=== PATIENT | male | born 1950 | race Caucasian/White ===

== ENCOUNTER 2017-07-07 06:09 | Observation (INO) | payer OTHER ==
[2017-07-07] VITALS (7 sets, daily range): BP systolic 121–156; BP diastolic 74–95; PULSE 60–70; RESP 18–20; TEMP 97.6–97.9; O2SAT 94–100
[~2017-07-07] VITALS: Ht 180.3 cm; Wt 81.0 kg
[~2017-07-07 06:09] MED LIST: CARV6.252 PO; FINA5TAB2 PO; LANS15CA PO
[2017-07-07] MEDS ORDERED: POVIDONE IODINE 5% (ANTISEPSIS KIT) 4 APPLICATIONS EACH NARE PRN (07:00)
[2017-07-07] MEDS ORDERED: INSULIN HUMAN REGULAR 1,000 UNITS/10 ML VIAL SQ PRN (07:00)
[2017-07-07] MEDS ORDERED: METOPROLOL TARTRATE 25 MG TAB PO PRN (07:00)
[2017-07-07] MEDS ORDERED: LACTATED RINGER'S 1000 ML IV PRN (07:00)
[2017-07-07] MEDS ORDERED: SODIUM CHLORID 0.9% 500 ML IV PRN (07:00)
[2017-07-07] MEDS ORDERED: AMPICILLIN/SULBAC 3 GM/NS 100 ML IV SCH ×2 (07:00)
[2017-07-07] MEDS ORDERED: CHLORHEXIDINE GLUCONATE 2 % 1 PACK (2 CLOTHS) TOPICAL PRN (07:00)
[2017-07-07] MEDS ORDERED: OCUVTAB4 PO (07:01)
[2017-07-07] MEDS ORDERED: LIDOCAINE 1%/EPINEPHrine 1:100,000 SOLN 20 ML VIAL ONE (07:09)
[2017-07-07] MEDS ORDERED: MICROFIBRILLAR COLLAGEN HEMOSTAT 1 GM PKT ONE (07:09)
--- NOTE | 2017-07-07 07:27 | EKG ---
Date Performed: 07/07/2017 Time Performed: 07:16:37 PTAGE: 66 years EKG: ELECTRONIC ATRIAL PACEMAKER ABNORMAL RHYTHM ECG NO PREVIOUS TRACING DOCTOR: Gera Staples Interpretating Date/Time 07/07/2017 07:27:25
[2017-07-07] MEDS ORDERED: OXYMETAZOLINE HCL 0.05% 15 ML NASAL SPRAY ONE ×3 (08:54→09:22)
[2017-07-07] MEDS ORDERED: *MEPERIDINE 25 MG INJ VIAL PERIprocedural Use ONLY ONE (10:19)
[2017-07-07] MEDS ORDERED: *Lactated Ringer's INJ 1,000 ML ONE (10:22)
[2017-07-07] MEDS ORDERED: PROPOFOL 200 MG/20 ML AMP IV ONE (12:00)
[2017-07-07] MEDS ORDERED: ONDANSETRON HCL 4 MG/2 ML VIAL IV PUSH ONE (12:00)
[2017-07-07] MEDS: LACTATED RINGER'S 1000 ML INJ 1,000 ML IV SCH ×2 (13:00→23:08)
[2017-07-07] MEDS: ACETAMINOPHEN 325MG/HYDROcodone 7.5MG/15ML UDC PO PRN ×3 (15:24→23:08)
[2017-07-08] VITALS: BP 112/67; PULSE 64; RESP 20; TEMP 97; O2SAT 97
--- NOTE | 2017-08-06 15:27 | MP ---
cc: ERICKA TOWNSEND M.D. DATE OF SURGERY: July 08, [address] Ericka Townsend. PREOPERATIVE DIAGNOSIS 1. Nasal airway obstruction. 2. Hypertrophy of inferior turbinates. 3. Adenotonsillar hypertrophy. 4. Chronic tonsillitis. POSTOPERATIVE DIAGNOSIS 1. Nasal airway obstruction. 2. Hypertrophy of inferior turbinates. 3. Adenotonsillar hypertrophy. 4. Chronic tonsillitis. OPERATION PERFORMED 1. Bilateral submucosal resection of inferior turbinates. 2. Adenotonsillectomy. INDICATIONS Documented in the history and physical. DESCRIPTION OF OPERATION The patient was taken to OR #2 and placed in the supine position. Following induction of general anesthesia and intubation the nose was packed bilaterally with cotton pledgets saturated in 0.05% Oxymetazoline and the inferior turbinates were injected with a total of 3 mL of 1% Xylocaine with epinephrine 1:100,000. He was then prepped and draped for surgery. Packing was removed and nose was examined endoscopically. The inferior turbinates were fractured out medially and stab incisions were made along the inferior surfaces and through these incisions the submucosal soft tissue was reduced using a curette and preserving the conchal bone. The incision was then cauterized with suction Bovie at 30 zhou and the remnants of the inferior turbinates were re-lateralized to the lateral nasal wall. The nose was then packed with Merocel tampons coated in bacitracin ointment. The table was then turned 90 degrees and a shoulder roll and McIvor mouth gag were put in place. The tonsils were removed using ArthroCare Coblator technique. There were numerous sites of venous and arterial bleeding cauterized using the bipolar cautery. The adenoids then were removed using the suction Bovie at 35 zhou. Stomach was aspirated of several ccs of bilious gastric contents using a #18 Rincon sump NG tube and when this was completed the mouth gag was removed and the procedure was terminated. The patient was reversed from anesthesia and taken to recovery in good condition. There were no complications. Blood loss was 60 mL. MD RAMONA Cantu/PARRISH /8:46 AM /2:57 PM
== END 2017-07-08 07:40 | disposition home or self-care (01) ==
LOC: PHSDC 06:09 → PH3A 12:26
PROVIDERS: ADMIT Otolaryngology; ATTEND Otolaryngology
DX: J35.01 Chronic tonsillitis (principal); J35.3 Hypertrophy of tonsils with hypertrophy of adenoids; J34.3 Hypertrophy of nasal turbinates; R94.31 Abnormal electrocardiogram [ECG] [EKG]
CPT/HCPCS: 00160; 30140; 42821; 88304; 93005; 94762; 96361; 96365; G0378; J0295; J2175; J2405; J3010; J7120